=== PATIENT | female | born 1970 | race Caucasian/White ===

== ENCOUNTER → 2019-02-02 | Outpatient (CLI) | payer OTHER ==
[2019-02-02 10:08] VITALS: BMI 32.6
== END | disposition home or self-care (01) ==
LOC: DBWHC3 07:50
PROVIDERS: ATTEND Orthopaedic Surgery
DX: Z71.3 Dietary counseling and surveillance (principal); Z68.30 Body mass index [BMI] 30.0-30.9, adult
CPT/HCPCS: 97802